=== PATIENT | female | born 1940 | race Two or more races ===

== ENCOUNTER 2017-07-24 10:44 | Outpatient (CLI) | payer OTHER ==
[~2017-07-24 10:44] MED LIST: ARICEPT5 MG PO; ASA81 MG PO; BIAXIN250 MG PO; CRESTOR10 MG; INTESTINEX680 MG PO; LIPITOR20 MG; LIPITOR40 MG PO; LISINOPRIL-HCTZ1 TA3 PO; NABUMETONE500 MG PO; NORTUSS-EX LIQ118 ML PO; NORVASC5 MG PO; PLAVIX75 MG PO; PRILOSEC20 MG PO; TESSALON PERLE100 MG PO; TUSSI-PRES LIQ118 ML PO; ZESTRIL10 M1; ZETIA10 MG PO; ZIAC 2.5-6.25 M1 TAB PO; ZITHROMAX TRI-500 MG PO; ZITHROMAX200 MG PO; ZITHROMAX500 MG PO
== END 2017-07-24 17:00 | disposition home or self-care (01) ==
LOC: RAD 10:44
DX: Z96.652 Presence of left artificial knee joint (principal)

== ENCOUNTER 2017-09-26 09:53 | Outpatient (CLI) | payer OTHER | END 2017-09-26 14:51 | disposition home or self-care (01) | LOC: RAD 09:53 | DX: M19.042 Primary osteoarthritis, left hand (principal); M19.041 Primary osteoarthritis, right hand; M54.5 Low back pain; M47.815 Spondylosis without myelopathy or radiculopathy, thoracolumbar region ==

== ENCOUNTER 2018-08-17 08:27 | Outpatient (CLI) | payer OTHER | END 2018-08-17 08:35 | disposition home or self-care (01) | LOC: MRI 08:27 | DX: M51.27 Other intervertebral disc displacement, lumbosacral region (principal) | CPT/HCPCS: 72148 ==

== ENCOUNTER 2018-08-30 08:21 | Outpatient (CLI) | payer OTHER | END 2018-08-30 08:33 | disposition home or self-care (01) | LOC: RAD 501 08:21 | DX: M54.6 Pain in thoracic spine (principal) ==

== ENCOUNTER → 2018-11-06 | Emergency (ER) | payer OTHER ==
[~2018-11-06] VITALS: Ht 152.4 cm; Wt 66.7 kg
[~2018-11-06] MED LIST changes: +PROMETH-CODEIN 65 ML PO; +TESSALON PERLE100 M1 PO
== END | disposition home or self-care (01) ==
LOC: ER 11:27
DX: R05 Cough (principal)

== ENCOUNTER 2018-11-26 11:00 | Outpatient (CLI) | payer OTHER | END 2018-11-26 11:06 | disposition home or self-care (01) | LOC: MRI 11:00 | DX: F09 Unspecified mental disorder due to known physiological condition (principal); F03.90 Unspecified dementia, unspecified severity, without behavioral disturbance, psychotic disturbance, mood disturbance, and anxiety | CPT/HCPCS: 70551 ==

== ENCOUNTER 2020-02-09 08:57 | Inpatient (IN) | payer OTHER ==
[~2020-02-09] VITALS: Ht 154.9 cm; Wt 81.6 kg
[2020-02-09] MEDS ORDERED: LECITHIN400 M1 (09:35)
[2020-02-09] MEDS ORDERED: CRESTOR5 MG (09:35)
[2020-02-09] MEDS ORDERED: PLAVIX75 MG (09:36)
[2020-02-09] MEDS ORDERED: DIALYVITE 3,001 EACH (09:36)
[2020-02-09] MEDS ORDERED: ARICEPT5 MG (09:36)
[2020-02-09] MEDS ORDERED: NAMENDA5 MG (09:40)
[2020-02-09] MEDS ORDERED: OXTELLAR XR150 MG (09:41)
== END 2020-02-13 19:46 | disposition home or self-care (01) | DRG 384 ==
LOC: ER 08:57 → SURH 17:06
PROVIDERS: ADMIT Internal Medicine; ATTEND Internal Medicine
PROC: BW21ZZZ Computerized Tomography (CT Scan) of Abdomen and Pelvis (ICD-10-PCS; 2020-02-09)
PROC: B020ZZZ Computerized Tomography (CT Scan) of Brain (ICD-10-PCS; 2020-02-09)
PROC: 4A033R1 Measurement of Arterial Saturation, Peripheral, Percutaneous Approach (ICD-10-PCS; 2020-02-09)
PROC: 30233N1 Transfusion of Nonautologous Red Blood Cells into Peripheral Vein, Percutaneous Approach (ICD-10-PCS; 2020-02-09)
PROC: 0DB68ZX Excision of Stomach, Via Natural or Artificial Opening Endoscopic, Diagnostic (ICD-10-PCS; principal; 2020-02-13)
DX: K25.3 Acute gastric ulcer without hemorrhage or perforation (principal); D62 Acute posthemorrhagic anemia; N39.0 Urinary tract infection, site not specified; K92.1 Melena; I10 Essential (primary) hypertension; K57.30 Diverticulosis of large intestine without perforation or abscess without bleeding; R55 Syncope and collapse; Z20.828 Contact with and (suspected) exposure to other viral communicable diseases

== ENCOUNTER 2020-02-21 10:22 | Outpatient (CLI) | payer OTHER ==
[~2020-02-21 10:22] MED LIST changes: +ARICEPT5 MG; +CRESTOR5 MG; +DIALYVITE 3,001 EACH; +LECITHIN400 M1; +NAMENDA5 MG; +OXTELLAR XR150 MG; +PLAVIX75 MG
== END 2020-02-21 10:27 | disposition home or self-care (01) ==
LOC: RAD 10:22
PROVIDERS: ATTEND Internal Medicine Endocrinology, Diabetes & Metabolism
DX: S82.91XA Unspecified fracture of right lower leg, initial encounter for closed fracture (principal)

== ENCOUNTER 2020-02-28 08:26 | Outpatient (CLI) | payer OTHER | END 2020-02-28 08:29 | disposition home or self-care (01) | LOC: RAD 08:26 | PROVIDERS: ATTEND Internal Medicine Hematology & Oncology | DX: D72.818 Other decreased white blood cell count (principal) ==

== ENCOUNTER 2021-05-24 11:39 | Outpatient (CLI) | payer OTHER | END 2021-05-24 11:47 | disposition home or self-care (01) | LOC: TOM 11:39 | PROVIDERS: ATTEND Urology | DX: K57.90 Diverticulosis of intestine, part unspecified, without perforation or abscess without bleeding (principal); R31.21 Asymptomatic microscopic hematuria; Q61.02 Congenital multiple renal cysts ==

== ENCOUNTER 2024-06-02 06:03 | Emergency (ER) | payer OTHER ==
[~2024-06-02] VITALS: Ht 157.5 cm; Wt 78.0 kg
[2024-06-02] MEDS ORDERED: TRAMADOL HCL 50 MG TABLET PO STA (08:17)
== END 2024-06-02 08:36 | disposition home or self-care (01) ==
LOC: ER 06:03
DX: M54.50 Low back pain, unspecified (principal); Z88.6 Allergy status to analgesic agent